=== PATIENT | female | born 1980 | race Caucasian/White ===

== ENCOUNTER 2016-08-20 10:10 | Emergency (ER) | payer MEDICAID ==
--- NOTE | 2016-08-20 11:35 | OBHP ---
Datetime: 08/20/2016 11:25 IP Adm Impression: Term, intrauterine IP Admit Plan: Observation/Evaluation Admit Comment, IP Provider: 36yo edc 09/02 by lmp _ 24wk us presents with c/o of ctxs since 8am. Denies decreased fm, srom or coitus in past 2 days. States her last labor was 2hr duration obhx: x3 h/o fast labor nkda medic: pnv shx: denies etoh, drugs or tobacco pshx _ pmhx: denies I: 38.1wk Labor Eval H/O Fast Labor P: observe. Pelvic Type - PN: Adequate Extremities - PN: Normal Abdomen - PN: Normal Lungs - PN: Normal Heart - PN: Normal Neurologic - PN: Normal HEENT - PN: Normal General - PN: Normal Presentation-Admit: Vertex FHR - Baseline A Provider: 120 Membranes, Provider: Intact Comments, ACOG Physical Exam: GBS NEG RI +O+ PPD + EGA AdmitDate IP: 38.1 IP Chief Complaint: Uterine contractions NICHD Variability Prov Fetus A: Minimal - Undetectable to <5bpm NICHD Accel Fetus A IP Provider: 15X15 FHR Category Provider Fetus A: Category I NICHD Decel Fetus A IP Provider: None Dilatation, Provider: 2 Effacement, Provider: 80 Station, Provider: -1 Genitourinary Exam: Normal
== END 2016-08-20 14:05 | disposition home or self-care (01) ==
LOC: H.EROB2 10:10 → MERGE 10:10 → H.EROB2 14:05
DX: O60.03 Preterm labor without delivery, third trimester (principal); Z3A.38 38 weeks gestation of pregnancy

== ENCOUNTER 2016-08-27 02:53 | Inpatient (IN) | payer MEDICAID ==
[2016-08-27 03:14] VITALS: BMI 29.2
[2016-08-27] MEDS ORDERED: Lidocaine 1% Inj (20ml) ONE (03:30)
[2016-08-27] MEDS ORDERED: Lactated Ringer's 1,000 ML IV SCH ×2 (04:45→06:15)
[2016-08-27 04:58] LABS: BASO # 0.1 K/uL (0.0-0.2); BASO % 0.6 % (0.0-2.0); EOS # 0.2 K/uL (0.0-0.7); EOS % 1.8 % (0.0-4.0); HEMATOCRIT 40.8 % (34.0-47.0); LYMPH # 2.7 K/uL (1.0-4.3); LYMPH % 23.5 % (20.0-40.0); MEAN CELL VOLUME 87.3 fl (81.0-99.0); MEAN CORPUSCULAR HEMOGLOBIN 28.4 pg (27.0-31.0); MEAN CORPUSCULAR HGB CONC 32.6 g/dL (33.0-37.0); MEAN PLATELET VOLUME 10.9 fl (7.2-11.7); MONO # 0.9 K/uL (0.0-0.8); MONO % 8.1 % (0.0-10.0); NEUT # 7.6 K/uL (1.8-7.0); RED CELL DISTRIBUTION WIDTH 14.2 % (11.5-14.5); WHITE BLOOD COUNT 11.5 K/uL (4.8-10.8)
[2016-08-27 04:59] VITALS: BP 126/83; PULSE 66; RESP 18; TEMP 98.1; O2SAT 100
[2016-08-27] MEDS ORDERED: Bupivacaine HCl 0.25% PF (10 ml) Inj ONE (05:10)
[2016-08-27] MEDS ORDERED: Fentanyl/Bupivacaine HCl 250 ML EPI ONE (05:10)
--- NOTE | 2016-08-27 08:22 | OBADHP ---
Datetime: 08/27/2016 08:20 FHR - Baseline A Provider: 130s-140s Amniotic Fluid Color, Provider: Clear Membranes, Provider: Ruptured Contraction Comments Provider: q2min Vital Signs Provider: Reviewed; Within Normal Limits NICHD Accel Fetus A IP Provider: 15X15 NICHD Decel Fetus A IP Provider: Early Dilatation, Provider: 9 Effacement, Provider: 100 Station, Provider: 0 Datetime: 08/27/2016 04:30 Comments, ACOG Physical Exam: pelvic exam 4: 30 am NICHD Variability Prov Fetus A: Moderate 6-25bpm FHR Category Provider Fetus A: Category I Datetime: 08/27/2016 04:21 Admit Comment, IP Provider: 36 yo , at 39.1 weeks GA with BINDU: 09/02/16 presents to [facility] c/o uterine ctx started last night 10 pm, every 8-9 minutes and vaginal spotting pink color small amount. Patient denies LOF, fever,dysuria, vaginal discharge, headache, N/V, trauma. Reports + FM, no recent sexual intercourse. care in [facility]. last visit 08/20. POBhx: x 3 full term. Hx/o fast labor PMHx: none Allergies: none. Meds: PNV PSurgHx: None PShx: No Etoh, rect drugs, cig GBS: neg ABO-Rh: O+ Antibody: neg RPR: neg 1st T HIV: neg 1st T HBsAg: neg Rubella: immune GC/C: neg PPD: Hx/o + PPD TDap: placed Flu: placed Assessment/Plan:36 yo , at 39.1 weeks GA c/o uterine Ctx. Active labor -Admit L _ D -Continous monitoring -Iv fluids -CBC, Type screen, HIV, RPR Noe Garcia PGY1 Case discussed with Dr Short Pelvic Type - PN: Adequate Extremities - PN: Normal Abdomen - PN: Normal Back - PN: Not Done Breast - PN: Normal Lungs - PN: Normal Heart - PN: Normal Thyroid - PN: Normal Neurologic - PN: Normal HEENT - PN: Normal General - PN: Normal IP Chief Complaint: Uterine contractions; Vaginal bleeding Genitourinary Exam: Normal DTRs - PN: Normal EGA AdmitDate IP: 39.1 IP Adm Impression: Term, intrauterine IP Admit Plan: Admit to unit; Initiate labor protocol; Observation/Evaluation Datetime: 08/20/2016 11:25 Presentation-Admit: Vertex
--- NOTE | 2016-08-27 08:24 | OBPN ---
Datetime: 08/27/2016 08:20 IP Progress Impression: Normal progression of labor; Reassuring heart rate IP Informed Consent Obtain: Vaginal Delivery IP Procedures: Artificial ROM; Sterile Vag Exam IP Progress Plan: Continue present management Membranes, Provider: Ruptured Amniotic Fluid Color, Provider: Clear Contraction Comments Provider: q2min FHR - Baseline A Provider: 130s-140s IP Progress Note Comment: AROM clear. Labor progressing well. Both MWB/FWB reassuring at this time . Anticipate Vital Signs Provider: Reviewed; Within Normal Limits NICHD Accel Fetus A IP Provider: 15X15 NICHD Variability Prov Fetus A: Moderate 6-25bpm Dilatation, Provider: 9 Effacement, Provider: 100 Station, Provider: 0 NICHD Decel Fetus A IP Provider: Early Datetime: 08/27/2016 04:30 FHR Category Provider Fetus A: Category I Datetime: 08/20/2016 11:25 Presentation-Admit: Vertex
--- NOTE | 2016-08-27 10:59 | OBDS ---
DELIVERY PERSONNEL Delivery Doctor: Jose Soler MD Outpatient Receptionist: Deborah Zamora RN Anesthesiologist: Iris Mendez MD MATERNAL INFORMATION Delivery Anesthesia: Epidural Medications in Delivery: pitocin 20u in 1L Estimated Blood Loss (ml): 200 Maternal Complications: None Provider Comments: Delivered a live baby girl at 10:45 AM the baby was bulb suctioned on the perineu m and transferred to maternal chest. The cord was clamped and cut 3 vessels noted, cord blood was obt ained and sent to the lab. The placenta was delivered at 10:49 AM intact, the estimated blood loss wa s 200 mL. There were no vaginal lacerations the mother tolerated the procedure well. The baby went to the well baby nursery weighing 3645 g with Apgars of 9 and 9 LABOR SUMMARY EDC: 09/02/2016 00:00 No. Babies in Womb: 1 Attempted: No Labor Anesthesia: Epidural LABOR INFORMATION Reason for Induction: Not Applicable Onset of Labor: 08/27/2016 03:32 Complete Dilatation: 08/27/2016 10:20 Oxytocin: N/A Group B Beta Strep: Negative Antibiotics # of Doses: 0 Antibiotics Time of Last Dose: n/a Steroids Given: None Reason Steroids Not Administered: Not Applicable MEMBRANES Membranes Rupture Method: Artificial Rupture of Membranes: 08/27/2016 08:10 Length of Rupture (hrs): 2.58 Amniotic Fluid Color: Clear Amniotic Fluid Amount: Moderate Amniotic Fluid Odor: Normal STAGES OF LABOR Stage 1 hrs: 6 Stage 1 min: 48 Stage 2 hrs: 0 Stage 2 min: 25 Stage 3 hrs: 0 Stage 3 min: 4 Total Time in Labor hrs: 7 Total Time in Labor min: 17 VAGINAL DELIVERY Episiotomy: None Laceration Extension: N/A Laceration Type: None Initial Vag Sponge Count: 5 Final Vag Sponge Count: 5 Initial Vag Sharps Count: 0 Final Vag Sharps Count: 0 Sponge Count Correct: Yes Sharps Count Correct: N/A BABY A INFORMATION Infant Delivery Date/Time: 08/27/2016 10:45 Method of Delivery: Vaginal Born in Route : No : N/A Forceps: N/A Vacuum Extraction: N/A Shoulder Dystocia : No SHOULDER DYSTOCIA BABY A Infant Delivery Date/Time: 08/27/2016 10:45 PRESENTATION/POSITION BABY A Presentation: Cephalic Cephalic Presentation: Vertex Breech Presentation: N/A PLACENTA INFORMATION BABY A Placenta Delivery Time : 08/27/2016 10:49 Placenta Method of Delivery: Spontaneous Placenta Status: Delivered SCORES BABY A Heart Rate 1 min: >100 bpm Resp Effort 1 min: Good Cry Reflex Irritability 1 min: Cough or Sneeze or Pulls Away Muscle Tone 1 min: Active Motion Color 1 min: Body [place], Extremities Blue Resuscitation Effort 1 min: N/A SCORE 1 MIN: 9 Heart Rate 5 min: >100 bpm Resp Effort 5 min: Good Cry Reflex Irritability 5 min: Cough or Sneeze or Pulls Away Muscle Tone 5 min: Active Motion Color 5 min: Body [place], Extremities Blue Resuscitation Effort 5 min: N/A SCORE 5 MIN: 9 INFANT INFORMATION BABY A Gestational Age at Delivery: 39.1 Gestational Status: Term Outcome : Liveborn Condition : Stable WEIGHT/LENGTH BABY A Infant Birthweight (gms): 3645 Infant Weight (lb): 8 Weight (oz): 1 CORD INFORMATION BABY A No. Cord Vessels: 3 Nuchal Cord : N/A ASSESSMENT BABY A Complications: None Physical Findings at Delivery: Within Normal Limits Infant Respirations: Appears Normal Care By: Francisca Zaldivar Transferred To: Nursery
[2016-08-27] MEDS ORDERED: Oxycodone/Acetaminophen 5/325 mg Tab PO PRN ×2 (13:34→15:24)
[2016-08-28 07:46] LABS: HEMATOCRIT 26.9 % (34.0-47.0); MEAN CELL VOLUME 86.7 fl (81.0-99.0); MEAN CORPUSCULAR HEMOGLOBIN 29.1 pg (27.0-31.0); MEAN CORPUSCULAR HGB CONC 33.5 g/dL (33.0-37.0); RED CELL DISTRIBUTION WIDTH 14.1 % (11.5-14.5); WHITE BLOOD COUNT 9.2 K/uL (4.8-10.8)
--- NOTE | 2016-08-28 11:08 | RAD ---
HISTORY: positive ppd COMPARISON: No prior. FINDINGS: LUNGS: No active pulmonary disease. PLEURA: No significant pleural effusion identified, no pneumothorax apparent. CARDIOVASCULAR: Normal. OSSEOUS STRUCTURES: No significant abnormalities. VISUALIZED UPPER ABDOMEN: Normal. OTHER FINDINGS: None. IMPRESSION: No active disease.
--- NOTE | 2016-08-29 10:40 | OBPPN ---
Datetime: 08/29/2016 09:46 PP Pain Prov: Within normal limits PP Nausea Prov: Denies PP Flatus Prov: Yes PP Heart Prov: Normal PP Lungs Prov: Normal PP Abdomen/Uterus Prov: Normal PP Lochia Prov: Normal PP Progress Prov: Normal PP Comments Phys Exam Prov: lochia=menses PP Impression Prov: Normal progression PP Plan Prov: Discharge PP Progress Note Prov: PPD2 Patient feeling well. She is breast and bottle feeding. Breast feeding without difficulty. Ambulat ing without difficulty, no dizziness upon standing, palpiations. A: PPD 2 s/p with normal post progression P: pain control encouraged breast feeding and ambulation. Rx for motrin, iron colace. -discharge home Liz PGY1 Patient seen with the resident I agree with the note. The patient is cleared for discharge Vital Signs Provider PP: Reviewed Datetime: 08/28/2016 07:20 PP BM Prov: No PP Breasts Prov: Normal PP Vulva/Perineum Prov: Normal PP CVA Tenderness Prov: Normal PP Extremities Prov: Normal PP C/S Incision Prov: Not Applicable
--- NOTE | 2016-08-29 10:42 | OBDCSUM ---
Datetime: 08/29/2016 09:49 Discharged to, Provider: Home Follow up at, Provider: [facility] Disch Instr Activity: Normal activity Disch Instr Diet: Regular Discharge Instructions, Provider: Routine instructions given Discharge Diagnosis, Provider: Term Delivered Discharge Time: 08/29/2016 11:00 Follow up in weeks, Provider: 1 week Disch Referrals: None Disch Activity Restrictions: No sexual activity; Nothing in vagina - [place], tampons, douche Discharge Comment, Provider: Cleared for discharge Contraception after Delivery: Undecided
== END 2016-08-29 13:43 | disposition home or self-care (01) | DRG 373 ==
LOC: H.EROB2 02:53 → H.L&D 04:35 → MERGE 04:35 → H.L&D 05:12 → H.OB/GYN 15:10
PROVIDERS: ADMIT Obstetrics & Gynecology; ATTEND Obstetrics & Gynecology
PROC: 10E0XZZ Delivery of Products of Conception, External Approach (ICD-10-PCS; principal; 2016-08-27)
PROC: 4A1HXCZ Monitoring of Products of Conception, Cardiac Rate, External Approach (ICD-10-PCS; 2016-08-27)
DX: O80 Encounter for full-term uncomplicated delivery (principal); Z37.0 Single live birth; Z3A.39 39 weeks gestation of pregnancy